=== PATIENT | female | born 1970 | race Caucasian/White ===

== ENCOUNTER 2019-05-12 12:56 | Emergency (ER) | payer OTHER ==
--- OUTSIDE RECORDS SUMMARY | 2019-05-12 12:58 | XMS REPORT | Clinical Summary ---
:1970 Author Organization [facility] Address [address] [place] [address] Care Team Providers Name Role Phone Shlomo Edwards Primary Care Provider Allergies No Known Allergies Medications Medication Sig Dispensed Refills Start Date End Date Status meloxicam (MOBIC) 7.5 TK 1 TO 2 TS 1 10/22/2018 Active MG tablet PO QD cyclobenzaprine Take 10 mg by 0 Active (FLEXERIL) 10 MG mouth 3 tablet (three) times daily as needed for Muscle spasms. gabapentin (NEURONTIN) Take 1 capsule 90 capsule 0 12/06/2018 01/05/2019 100 MG capsule (100 mg total) by mouth 3 (three) times daily for 30 days. ascorbic acid, vitamin Take 1 tablet 30 tablet 0 12/06/2018 01/05/2019 C, (ASCORBIC ACID WITH (500 mg total) ARMAND HIPS) 500 MG by mouth daily tablet for 30 days. Active Problems Problem Noted Date Left carpal tunnel syndrome 12/06/2018 Left cervical radiculopathy 12/06/2018 DDD (degenerative disc disease), cervical 12/06/2018 Tobacco use disorder 12/06/2018 Hand numbness 12/06/2018 Encounters Date Type Specialty Care Team Description 12/13/2018 Telephone Orthopedic Surgery Ovidio Shepherd Physical Therapy MD Kailash 12/10/2018 Telephone Orthopedic Surgery Ovidio Shepherd Need Referral MD Kailash 12/06/2018 Office Visit Orthopedic Surgery Ovidio Shepherd Hand numbness ( Primary Dx); MD Kailash Tobacco use disorder; Left carpal tunnel syndrome; Left cervical radiculopathy; DDD (degenerative disc disease), cervical after 05/11/2018 Family History Medical History Relation Name Comments Heart attack Father Relation Name Status Comments Father Social History Tobacco Use Types Packs/Day Years Used Date Current Every Day Smoker 0.25 32 Smokeless Tobacco: Never Used Alcohol Use Drinks/Week oz/Week Comments Yes Sex Assigned at Date Recorded Not on file Job Start Date Occupation Industry Not on file Not on file Not on file Travel History Travel Start Travel End No recent travel history available. Last Filed Vital Signs Vital Sign Reading Time Taken Blood Pressure 117/84 12/06/2018 11:16 AM [employer] Pulse 60 12/06/2018 11:16 AM [employer] Temperature - - Respiratory Rate - - Oxygen Saturation - - Inhaled Oxygen Concentration - - Weight 84.8 kg (187 lb) 12/06/2018 11:16 AM [employer] Height 175.3 cm (5' 9") 12/06/2018 11:16 AM [employer] Body Mass Index 27.62 12/06/2018 11:16 AM [employer] Plan of Treatment Not on file Procedures Procedure Name Priority Date/Time Associated Diagnosis Comments XR SPINE CERVICAL 2 Routine 12/06/2018 12:05 PM Hand numbness Results for this OR 3 VIEWS [employer] procedure are in the results section. XR HAND LEFT 3 VIEW Routine 12/06/2018 12:05 PM Hand numbness Results for this [employer] procedure are in the results section. after 05/11/2018 Results XR hand 3 views left (12/06/2018 12:05 PM ELEVATOR EX[employer]IN[employer] ADJUST[employer]) Impressions Performed At Joint spaces are normal. There is no fracture seen. Soft tissues are unremarkable. Essentially these are normal radiographs Narrative Performed At AP lateral and oblique of the left hand are reviewed. XR spine cervical 2 or 3 views (12/06/2018 12:05 PM ELEVATOR EX[employer]IN[employer] ADJUST[employer]) Impressions Performed At There is slight loss of the normal cervical lordotic curve at C4-C5. No significant disc space narrowing is seen. There is some very mild spurring visible. Soft tissues are unremarkable. Narrative Performed At APlateral and odontoid view are reviewed. after 05/11/2018 Insurance Payer Benefit Plan / Group Subscriber ID Type Phone Address [facility] xxxxxxxxx Other Govt ([facility] [place], [facility], etc.)
--- OUTSIDE RECORDS SUMMARY | 2019-05-12 12:58 | XMS REPORT | Clinical Summary ---
:1970 Author Organization [facility] Address [address] [place] [address] Care Team Providers Name Role Phone Asked, No Pcp Primary Care Provider Unavailable Allergies Not on File Medications Not on file Active Problems Not on file Encounters Date Type Specialty Care Team Description 01/26/2019 Hospital Encounter Radiology Shlomo Edwards, Screening breast MD examination 01/09/2019 Transcribe Orders Access Shlomo Edwards, Screening breast MD examination (Primary Dx) after 05/11/2018 Social History Tobacco Use Types Packs/Day Years Used Date Never Assessed Sex Assigned at Date Recorded Not on file Job Start Date Occupation Industry Not on file Not on file Not on file Travel History Travel Start Travel End No recent travel history available. Last Filed Vital Signs Not on file Plan of Treatment Health Maintenance Due Date Last Done Comments INFLUENZA VACCINE 06/20/2019 Procedures Procedure Name Priority Date/Time Associated Comments Diagnosis MAMMO BREAST SCREEN Routine 01/26/2019 10:00 Screening breast Results for this TOMOSYNTHESIS AM CHILDCARE ATTENDANT examination procedure are in BILATERAL the results section. after 05/11/2018 Results Mammo Breast Screen Tomosynthesis Bilateral (01/26/2019 10:00 AM CHILDCARE ATTENDANT) Specimen Narrative Performed At PROCEDURE: MAMMO BREAST SCREEN [facility] Computer aided detection was utilized for the interpretation. Bilateral digital screening mammogram was performed with tomosynthesis. COMPARISON EXAMS: 2016 and 2014 DENSITY:The breast tissue is heterogeneously dense, which may obscure small masses. FINDINGS: No suspicious finding is seen. Bilateral subglandular silicone implants obscure portions of the breast parenchyma. A biopsy clip is present in the left breast and adjacent nodular asymmetry is unchanged. IMPRESSION: No mammographic evidence of malignancy. Recommend annual screening mammography and correlation with physical exam. BI-RADS 2:BENIGN This facility is accredited by the [employer] for Mammography. A negative x-ray report should not delay biopsy if a dominant or clinically suspicious mass is present.Not all cancers are identified by x-ray. [id number] Performing Organization Address City/State/Zipcode Phone Number [facility] [phone] [place] [address] after 05/11/2018 Advance Directives Patient has advance care planning documents on file. For more information, please contact:Marky [id number] [place] [address]
--- NOTE | 2019-05-12 14:20 | ER ---
Nurse's Notes [facility] Name: Maria Alejandra Reyes Age: 48 yrs Sex: Female : 1970 Arrival Date: 05/12/2019 Time: 12:59 Bed 26 Private MD: Diagnosis: Displaced fracture of distal phalanx of left lesser toe(s) Presentation: 05/12 13:11 Presenting complaint: Patient states: "I kicked a chair on and I think I broke aa5 my toes". Pt c/o pain to left toes. Transition of care: patient was not received from another setting of care. Onset of symptoms was April 2019. Risk Assessment: Do you want to hurt yourself or someone else? Patient reports no desire to harm self or others. Initial Sepsis Screen: Does the patient meet any 2 criteria? No. Patient's initial sepsis screen is negative. Does the patient have a suspected source of infection? No. Patient's initial sepsis screen is negative. Care prior to arrival: None. 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 - Social history:: Smoking status: Patient uses tobacco products, smokes one-half pack cigarettes per day. - Ebola Screening: : No symptoms or risks identified at this time. Screenin:56 Abuse screen: Denies threats or abuse. Denies injuries from another. Nutritional mg2 screening: No deficits noted. Tuberculosis screening: No symptoms or risk factors identified. Fall Risk None identified. Assessment: 14:17 General: Appears in no apparent distress. comfortable, Behavior is calm, cooperative. mg2 Pain: Complains of pain in left foot Pain does not radiate. Pain currently is 3 out of 10 on a pain scale. Quality of pain is described as aching, Pain began gradually, Is intermittent. Neuro: Level of Consciousness is awake, alert, obeys commands, Oriented to person, place, time, situation. Cardiovascular: Capillary refill < 3 seconds Patient's skin is warm and dry. Respiratory: Airway is patent Respiratory effort is even, unlabored, Respiratory pattern is regular, symmetrical. GI: No signs and/or symptoms were reported involving the gastrointestinal system. : No signs and/or symptoms were reported regarding the genitourinary system. EENT: No signs and/or symptoms were reported regarding the EENT system. Derm: Skin is intact, is healthy with good turgor, Skin is pink, warm \\T\\ dry. normal. Musculoskeletal: Circulation, motion, and sensation intact. Capillary refill < 3 seconds. 14:18 Musculoskeletal: Reports pain in left foot. mg2 Vital Signs: 13:13 BP 117 / 83; Pulse 72; Resp 16 S; Temp 97.8(TE); Pulse Ox 100% on R/A; Weight 77.11 kg aa5 (R); Height 5 ft. 9 in. (175.26 cm) (R); Pain 7/10; 14:32 BP 120 / 79; Pulse 70; Resp 18; Temp 98; Pulse Ox 100% on R/A; Pain 2/10; mg2 13:13 Body Mass Index 25.10 (77.11 kg, 175.26 cm) aa5 ED Course: 12:59 Patient arrived in ED. mr 13:11 Arm band placed on. aa5 13:12 Triage completed. aa5 13:21 Robinson Dominguez PA is PHCP. jr8 13:21 Tyler Reyes MD is Attending Physician. jr8 13:32 Bed in low position. Call light in reach. Side rails up X 1. Warm blanket given. Verbal jp3 reassurance given. 13:38 Ollie Ash, GENTRY is Primary Nurse. mg2 13:47 XRAY Foot LEFT 3 View In Process Unspecified. EDMS 14:15 No provider procedures requiring assistance completed. Patient did not have IV access mg2 during this emergency room visit. Bryant tape left middle toe. 14:20 Severiano Vasquez DPM is Referral Physician. jr8 14:30 post op shoe applied to the left foot. mg2 Administered Medications: No medications were administered Outcome: 14:20 Discharge ordered by . jr8 14:32 Discharged to home ambulatory. mg2 14:32 Condition: stable 14:32 Discharge instructions given to patient, Instructed on discharge instructions, follow up and referral plans. medication usage, Demonstrated understanding of instructions, follow-up care, medications, Prescriptions given X 1. 14:32 Patient left the ED. mg2 Signatures: Dispatcher [employer] Shae Hankins Audri, RN RN aa5 Robinson Dominguez PA PA jr8 Ollie Ash RN RN mg2 José Brower jp3
--- NOTE | 2019-05-12 14:21 | EDPHYS ---
Physician Documentation [facility] Name: Maria Alejandra Reyes Age: 48 yrs Sex: Female : 1970 Arrival Date: 05/12/2019 Time: 12:59 Bed 26 Private MD: ED Physician Tyler Reyes HPI: 05/12 13:36 This 48 yrs old Female presents to ER via Ambulatory with complaints of Toe jr8 Injury. 13:36 Onset: The symptoms/episode began/occurred acutely, today. The patient has not jr8 experienced similar symptoms in the past. The patient has not recently seen a physician. Patient stated that she accidently kicked bottom of chair with left foot injuring 2nd digit. Pain since incident with bruising . 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 - Social history:: Smoking status: Patient uses tobacco products, smokes one-half pack cigarettes per day. - Ebola Screening: : No symptoms or risks identified at this time. ROS: 13:36 Eyes: Negative for injury, pain, redness, and discharge, ENT: Negative for injury, jr8 pain, and discharge, Neck: Negative for injury, pain, and swelling, Cardiovascular: Negative for chest pain, palpitations, and edema, Respiratory: Negative for shortness of breath, cough, wheezing, and pleuritic chest pain, Abdomen/GI: Negative for abdominal pain, nausea, vomiting, diarrhea, and constipation, Back: Negative for injury and pain, Skin: Negative for injury, rash, and discoloration, Neuro: Negative for headache, weakness, numbness, tingling, and seizure. 13:36 MS/extremity: Positive for decreased range of motion, ecchymosis, pain, tenderness, of the left foot. Exam: 13:36 Eyes: Pupils equal round and reactive to light, extra-ocular motions intact. Lids and jr8 lashes normal. Conjunctiva and sclera are non-icteric and not injected. Cornea within normal limits. Periorbital areas with no swelling, redness, or edema. ENT: Nares patent. No nasal discharge, no septal abnormalities noted. Tympanic membranes are normal and external auditory canals are clear. Oropharynx with no redness, swelling, or masses, exudates, or evidence of obstruction, uvula midline. Mucous membranes moist. Neck: Trachea midline, no thyromegaly or masses palpated, and no cervical lymphadenopathy. Supple, full range of motion without nuchal rigidity, or vertebral point tenderness. No Meningismus. Cardiovascular: Regular rate and rhythm with a normal S1 and S2. No gallops, murmurs, or rubs. Normal PMI, no JVD. No pulse deficits. Respiratory: Lungs have equal breath sounds bilaterally, clear to auscultation and percussion. No rales, rhonchi or wheezes noted. No increased work of breathing, no retractions or nasal flaring. Abdomen/GI: Soft, non-tender, with normal bowel sounds. No distension or tympany. No guarding or rebound. No evidence of tenderness throughout. Back: No spinal tenderness. No costovertebral tenderness. Full range of motion. Skin: Warm, dry with normal turgor. Normal color with no rashes, no lesions, and no evidence of cellulitis. Neuro: Awake and alert, GCS 15, oriented to person, place, time, and situation. Cranial nerves II-XII grossly intact. Motor strength 5/5 in all extremities. Sensory grossly intact. Cerebellar exam normal. Normal gait. 13:36 Musculoskeletal/extremity: Extremities: grossly normal except: noted in the 2nd digit left foot: decreased ROM, ecchymosis, pain, tenderness, ROM: intact in all extremities, full active range of motion, full passive range of motion, limited active range of motion due to pain, limited passive range of motion due to pain, Circulation is intact in all extremities. Sensation intact. Vital Signs: 13:13 BP 117 / 83; Pulse 72; Resp 16 S; Temp 97.8(TE); Pulse Ox 100% on R/A; Weight 77.11 kg aa5 (R); Height 5 ft. 9 in. (175.26 cm) (R); Pain 7/10; 14:32 BP 120 / 79; Pulse 70; Resp 18; Temp 98; Pulse Ox 100% on R/A; Pain 2/10; mg2 13:13 Body Mass Index 25.10 (77.11 kg, 175.26 cm) aa5 Procedures: 14:17 Splinting: Splint applied to left foot using phuong tape with post op shoe. applied by jr8 nurse. Examined by me, post splint application: neurovascular intact, 2+ distal pulses palpable, brisk capillary refill noted, Patient tolerated well. MDM: 13:31 Patient medically screened. jr8 14:17 Data reviewed: vital signs, nurses notes, radiologic studies, plain films, and as a jr8 result, I will discharge patient. Data interpreted: Pulse oximetry: on room air is 100 %. Interpretation: normal. Test interpretation: by ED physician or midlevel provider: plain radiologic studies, Oblique fracture through the proximal phalanx of the 2nd digit . Counseling: I had a detailed discussion with the patient and/or guardian regarding: the historical points, exam findings, and any diagnostic results supporting the discharge/admit diagnosis, radiology results, the need for outpatient follow up, a compensation supervisor, to return to the emergency department if symptoms worsen or persist or if there are any questions or concerns that arise at home. 05/12 13:32 Order name: XRAY Foot LEFT 3 View jr8 Administered Medications: No medications were administered Disposition: 05/13 10:12 Co-signature as Attending Physician, Tyler Reyes MD I agree with the assessment and bindu plan of care. Disposition: 05/12/19 14:20 Discharged to Home. Impression: Displaced fracture of distal phalanx of left lesser toe(s). - Condition is Stable. - Discharge Instructions: Toe Fracture. - Prescriptions for Ibuprofen 800 mg Oral Tablet - take 1 tablet by ORAL route every 12 hours As needed take with food; 20 tablet. - Medication Reconciliation Form, Thank You Letter, Antibiotic Education, Prescription Opioid Use form. - Follow up: Severiano Vasquez DPM; When: 5 - 6 days; Reason: Recheck today's complaints, Continuance of care, Re-evaluation by your physician. - Problem is new. - Symptoms have improved. Signatures: Dispatcher [employer] EDMS Tyler Reyes MD MD cha Calderon, Audri, RN RN aa5 Robinson Dominguez PA PA jr8 Ollie Ash RN RN mg2 Corrections: (The following items were deleted from the chart) 05/12 14:19 14:17 Test interpretation: by ED physician or midlevel provider: plain radiologic jr8 studies, Oblique fracture through the proximal phalanx of the 2rd digit , jr8 14:19 13:36 Patient stated that she accidently kicked bottom of chair with left foot injuring jr8 3rd digit. Pain since incident with bruising . jr8 14:19 13:36 Musculoskeletal/extremity: Extremities: grossly normal except: noted in the 3rd jr8 digit left foot: decreased ROM, ecchymosis, pain, tenderness, ROM: intact in all extremities, full active range of motion, full passive range of motion, limited active range of motion due to pain, limited passive range of motion due to pain, Circulation is intact in all extremities. Sensation intact. jr8 14:32 14:20 05/12/2019 14:20 Discharged to Home. Impression: Displaced fracture of distal mg2 phalanx of left lesser toe(s). Condition is Stable. Forms are Medication Reconciliation Form, Thank You Letter, Antibiotic Education, Prescription Opioid Use. Follow up: Severiano Vasquez; When: 5 - 6 days; Reason: Recheck today's complaints, Continuance of care, Re-evaluation by your physician. Problem is new. Symptoms have improved. jr8
--- NOTE | 2019-05-12 14:43 | RAD REPORT ---
EXAM DESCRIPTION: RAD - Foot Left 3 View - 05/12/2019 1:48 pm CLINICAL HISTORY: Blunt force trauma to the foot, foot pain COMPARISON: None. FINDINGS: An oblique fracture is present through the shaft of the second proximal phalanx. There is 1 millimeter of distraction. No angulation deformity seen. Middle and distal phalanges of the second toe are intact. Remaining toes are intact. No metatarsal or tarsal bone acute finding. No air or foreign body in the soft tissues. IMPRESSION: Oblique fracture through the left foot second proximal phalanx.
== END 2019-05-12 14:32 | disposition home or self-care (01) ==
LOC: ER 12:56
DX: S92.532A Displaced fracture of distal phalanx of left lesser toe(s), initial encounter for closed fracture (principal); W22.03XA Walked into furniture, initial encounter; Y93.9 Activity, unspecified; Y92.9 Unspecified place or not applicable; F17.210 Nicotine dependence, cigarettes, uncomplicated
CPT/HCPCS: 99283